=== PATIENT | female | born 1935 | race Caucasian/White ===

== ENCOUNTER 2017-10-18 13:42 | Outpatient (CLI) | payer MEDICARE | END 2017-10-18 13:43 | disposition critical access hospital (66) | LOC: EMS 13:42 | PROVIDERS: ATTEND Surgery | DX: R42 Dizziness and giddiness (principal); R11.0 Nausea | CPT/HCPCS: A0425; A0429 ==

== ENCOUNTER 2017-10-18 14:17 | Inpatient (IN) | payer MEDICARE ==
[2017-10-18] MEDS ORDERED: MECLIZINE 12.5 MG TABLET PO STA (14:30)
--- NOTE | 2017-10-18 14:32 | ED Physician Documentation ---
History of Present Illness - Stated complaint Stated Complaint: DIZZY/NAUSEA - Chief complaint Chief Complaint: General - History obtained from History obtained from: Patient - History of Present Illness Timing: Other (She has had rhinorrhea lately, today around 10 AM developed severe spinning vertigo that is worse when she moved her head or tried to walk. It is not associated with any focal weakness, numbness, or tingling of the extremities and no headache. She vomited in the ambulance on the way here.) Review of Systems Ten Systems: 10 systems reviewed and negative Constitutional: denies: Fever, Chills Ears: denies: Ear pain, Drainage/discharge Nose: reports: Rhinorrhea / runny nose. denies: Congestion Throat: denies: Sore throat Cardiac: denies: Chest pain / pressure, Palpitations PD PAST MEDICAL HISTORY - Past Medical History Cardiovascular: Hypertension, High cholesterol, Atrial fibrillation, Arrhythmia Respiratory: None Neuro: Peripheral neuropathy Endocrine/Autoimmune: Type 2 diabetes GI: GERD : Incontinence, Renal insuffiency HEENT: None Psych: Depression, Anxiety Musculoskeletal: Chronic back pain Derm: Psoriasis - Past Surgical History Past Surgical History: Yes General: Cholecystectomy /[employer]AD: Tubal ligation HEENT: Cataracts Derm: Skin cancer surgery - Present Medications Home Medications: Ambulatory Orders Medication Instructions Recorded Confirmed Hydrochlorothiazide 25 mg PO DAILY 04/28/13 10/18/17 Losartan [Cozaar] 100 mg PO DAILY 04/28/13 10/18/17 Lovastatin [Mevacor] 10 mg PO DAILY 04/28/13 10/18/17 Metoprolol Succinate [Toprol Xl] 25 mg PO BID 04/28/13 10/18/17 Potassium Bicarbonate/Cit AC 20 meq PO DAILY 04/28/13 10/18/17 [Potassium 25 Meq Tablet Eff] Insulin Glargine,Hum.rec.anlog 16 units SQ DAILY 07/13/15 10/18/17 [Lantus] Diltiazem HCl [Diltiazem ER] 480 mg PO DAILY 10/18/17 10/18/17 - Allergies Allergies/Adverse Reactions: Allergies Allergy/AdvReac Type Severity Reaction Status Date / Time verapamil [Verapamil] Allergy Intermediate leg Verified 10/18/17 14:36 swelling lisinopril Allergy Mild cough Verified 10/18/17 14:36 opiates Allergy Intermediate vomiting Uncoded 04/28/13 08:25 - Social History Does the pt smoke?: No Smoking Status: Never smoker Does the pt drink ETOH?: No Does the pt have substance abuse?: No - Immunizations Immunizations are current?: Yes - POLST Patient has POLST: Yes POLST Status: DNR PD ED PE NORMAL - Vitals Vital signs reviewed: Yes - General General: Alert and oriented X 3, No acute distress - HEENT HEENT: PERRL, EOMI, Other (Fast nystagmus on leftward gaze, not rightward gaze, TMs normal.) - Neck Neck: Supple, no meningeal sign, No bony TTP - Cardiac Cardiac: RRR, No murmur - Respiratory Respiratory: No respiratory distress, Clear bilaterally - Abdomen Abdomen: Normal bowel sounds, Soft, Non tender - Extremities Extremities: No deformity, No tenderness to palpate, No edema, No calf tenderness / cord - Neuro Neuro: Alert and oriented X 3, Normal speech, Other (NIHSS zero (1430)) Eye Opening: Spontaneous Motor: Obeys Commands Verbal: Oriented GCS Score: 15 - Psych Psych: Normal mood, Normal affect Results - Vitals Vitals: Vital Signs - 24 hr 10/18/17 10/18/17 14:20 18:34 Temperature 36.5 C 36.9 C Heart Rate 76 82 Respiratory 16 16 Rate Blood Pressure 190/80 H 160/77 H O2 Saturation 98 93 Oxygen O2 Source [] Room air O2 Source Room air - EKG (time done) 1435 Rate: Rate (enter#) (66) Rhythm: NSR [place]: Normal Intervals: RBBB Ischemia: No: ST elevation c/w ischemia Compare to prior EKG: Unchanged from prior EKG (comp with 12/29/14) Computer interpretation: Agree with computer - Labs Labs: Laboratory Tests 10/18/17 10/18/17 15:12 15:12 WBC 6.2 RBC 4.82 Hgb 14.6 Hct 41.6 MCV 86.3 MCH 30.3 MCHC 35.2 RDW 12.7 Plt Count 182 MPV 7.8 L Neut # 4.9 Lymph # 0.7 L [place] # 0.5 Eos # 0.1 Baso # 0.0 Absolute Nucleated RBC 0.00 Nucleated RBC % 0.0 Sodium 135 Potassium 3.7 Chloride 99 L Carbon Dioxide 25 Anion Gap 11.0 BUN 21 H Creatinine 0.9 Estimated GFR (MDRD) 60 L Glucose 305 H Calcium 9.6 Total Bilirubin 0.6 AST 21 ALT 18 Alkaline Phosphatase 128 H Total Protein 6.4 L Albumin 3.3 Globulin 3.1 Albumin/Globulin Ratio 1.1 Lipase 17 L - Rads (name of study) MRI brain Radiology: EMP read contemporaneously (atrophy, NAD) PD MEDICAL DECISION MAKING - ED course ED course: 82-year-old woman with vertigo that seems peripheral based on examination and history. It was intractable in the emergency department and she was unable to ambulate on her own. As such an MRI was performed without evidence of acute disease and she feels she is unable to go home so will be placed in observation for further evaluation and treatment. Departure - Departure Disposition: ED Place in Observation Clinical Impression: Vertigo Condition: Stable
[2017-10-18 15:40] LABS: BASOPHILS % (AUTO) 0.3 %; EOSINOPHILS # (AUTO) 0.1 10^3/uL (0.0-0.7); EOSINOPHILS % (AUTO) 1.4 %; HGB - HEMOGLOBIN 14.6 g/dL (12.0-16.0); LYMPHOCYTES # (AUTO) 0.7 10^3/uL (1.5-3.5); LYMPHOCYTES % (AUTO) 11.6 %; MEAN CORPUSCULAR HEMOGLOBIN 30.3 pg (27.0-31.0); MEAN CORPUSCULAR HGB CONC 35.2 g/dL (32.0-36.0); MEAN CORPUSCULAR VOLUME 86.3 fL (81.0-99.0); MEAN PLATELET VOLUME 7.8 fL (7.9-10.8); MONOCYTES # (AUTO) 0.5 10^3/uL (0.0-1.0); MONOCYTES % (AUTO) 7.4 %; NEUTROPHILS # (AUTO) 4.9 10^3/uL (1.5-6.6); NEUTROPHILS % (AUTO) 79.3 %; PLT - PLATELET COUNT 182 10^3/uL (130-450); RED BLOOD COUNT 4.82 10^6/uL (4.20-5.40); RED CELL DISTRIBUTION WIDTH 12.7 % (12.0-15.0); WHITE BLOOD COUNT 6.2 x10^3/uL (4.8-10.8)
[2017-10-18 15:42] LABS: ALBUMIN 3.3 g/dL (3.2-5.5); ALBUMIN/GLOBULIN RATIO 1.1 (1.0-2.2); BILIRUBIN,TOTAL 0.6 mg/dL (0.2-1.0); CALCIUM 9.6 mg/dL (8.5-10.3); CREATININE 0.9 mg/dL (0.4-1.0); TOTAL PROTEIN 6.4 g/dL (6.7-8.2)
[2017-10-18] MEDS ORDERED: LORazepam 2 MG/ML VIAL IVP STA (16:18)
--- NOTE | 2017-10-18 18:35 | MRI Report ---
EXAM: MRI BRAIN WITHOUT CONTRAST EXAM DATE: 10/18/2017 05:58 PM. CLINICAL HISTORY: Vertigo. COMPARISON: None. TECHNIQUE: Multiplanar, multisequence T1-weighted and fluid-sensitive MR sequences of the brain were performed. Sequences optimized for routine evaluation. Other: None. IV Contrast: None. Findings: Relevant images are indicated (image number, series number). There is patient motion artifact. There is no acute or subacute ischemic changes in the brain. There is no significant hemosiderin depo sition present in the brain. There is no hemorrhage, mass or midline shift. Basal cisterns patent. There are normal expected vascu lar flow voids of the major arteries and veins. There is mild generalized atrophy, mild in straight v entricular enlargement.-day-old ischemic disease present right thalamus. Orbital contents negative, patient post bilateral lens surgery. Mild bilateral maxillary, sphenoid si nus mucosal thickening, moderate bilateral ethmoidal sinus mucosal thickening. Mild to moderate scattered periventricular, peritrigonal, subcortical white matter disease. Partial e mpty sella. Midbrain negative. Craniocervical junction, limited evaluation upper cervical cord negati ve. There is partial visualization of advanced upper cervical spine spondylosis at C3-C4. Impressions: 1. Study partly degraded by motion. 2. No acute or subacute ischemic change. 3. Mild generalized cortical atrophy, mild to moderate scattered white matter disease most likely rel ated to chronic small vessel ischemic disease, correlate with patient risk factors. 4. Partly visualized advanced upper cervical spine spondylosis at C3-C4. [facility] Referring Provider Line: [phone] SITE ID: [id number]
[2017-10-18] MEDS ORDERED: ONDANSETRON 4 MG/2 ML VIAL IVP PRN ×2 (20:15→20:43)
[2017-10-18] MEDS ORDERED: PROCHLORPERAZINE 10 MG/2 ML VIAL IVP PRN ×2 (20:15→20:43)
[2017-10-18] MEDS ORDERED: ZOLPIDEM 5 MG TABLET PO PRN ×2 (20:15→20:43)
[2017-10-18] MEDS ORDERED: ACETAMINOPHEN 325 MG TABLET PO PRN ×2 (20:15→20:43)
[2017-10-18] MEDS ORDERED: SODIUM CHLORIDE FLUSH 0.9% 10 ML SYRINGE IVP PRN ×2 (20:15→20:43)
[2017-10-18] MEDS ORDERED: LABETALOL 20 MG/4 ML SYRINGE IVP STA (20:24)
[2017-10-18] MEDS ORDERED: MECLIZINE 12.5 MG TABLET PO PRN (20:25)
[2017-10-18] MEDS ORDERED: METOPROLOL SUCCINATE 25 MG TABLET PO SCH (21:00)
[2017-10-18] MEDS ORDERED: INSULIN GLARGINE 300 UNIT/3 ML PEN SUBQ SCH (21:00)
[2017-10-18] MEDS ORDERED: HEPARIN 5,000 UNIT/ML VIAL SUBQ SCH (21:00)
[2017-10-18 21:37] LABS: HB2 TOTAL 16.1 g/dL; HEMOGLOBIN A1C % 7.8 % (4.6-6.2)
[2017-10-18] MEDS ORDERED: LABETALOL 20 MG/4 ML SYRINGE IVP SCH (21:56)
[2017-10-18] MEDS: HEPARIN 5,000 UNIT/ML VIAL SUBQ SCH (21:59)
[2017-10-18] MEDS ORDERED: SODIUM CHLORIDE FLUSH 0.9% 10 ML SYRINGE IVP SCH (22:00)
[2017-10-18] MEDS: METOPROLOL SUCCINATE 25 MG TABLET PO SCH (22:01)
[2017-10-18] MEDS: SODIUM CHLORIDE FLUSH 0.9% 10 ML SYRINGE IVP SCH (22:02)
[2017-10-19] MEDS: INSULIN ASPART 300 UNIT/3 ML PEN SUBQ SCH ×5 (00:06→21:27)
[2017-10-19] MEDS: MECLIZINE 12.5 MG TABLET PO PRN ×3 (00:07→23:15)
[2017-10-19] MEDS: SODIUM CHLORIDE FLUSH 0.9% 10 ML SYRINGE IVP SCH ×3 (06:22→21:37)
[2017-10-19] MEDS ORDERED: INSULIN ASPART 300 UNIT/3 ML PEN SUBQ SCH (08:00)
[2017-10-19] MEDS ORDERED: DILTIAZEM HCL PO SCH (09:00)
[2017-10-19] MEDS ORDERED: POTASSIUM BICARB 25 MEQ TABLET PO SCH ×2 (09:00)
[2017-10-19] MEDS ORDERED: INSULIN GLARGINE 300 UNIT/3 ML PEN SUBQ SCH (09:00)
[2017-10-19] MEDS ORDERED: POLYETHYLENE GLYCOL 3350 17 GM PACKET PO SCH (09:00)
[2017-10-19] MEDS ORDERED: FAMOTIDINE 20 MG TABLET PO SCH (09:00)
[2017-10-19] MEDS ORDERED: INSULIN GLARGINE HUM REC ANLOG 16 UNIT SQ SCH (09:00)
[2017-10-19] MEDS ORDERED: LOVASTATIN 10 MG PO SCH ×2 (09:00)
[2017-10-19] MEDS ORDERED: LOSARTAN 100 MG PO SCH (09:00)
[2017-10-19] MEDS ORDERED: hydroCHLOROthiazide 25 MG TABLET PO SCH (09:00)
[2017-10-19] MEDS: ATORVASTATIN 10 MG TABLET PO SCH (09:10)
[2017-10-19] MEDS: diltiaZEM CD 240 MG CAPSULE PO SCH (09:10)
[2017-10-19] MEDS: METOPROLOL SUCCINATE 25 MG TABLET PO SCH ×2 (09:10→21:37)
[2017-10-19] MEDS: LOSARTAN 50 MG TABLET PO SCH (09:10)
[2017-10-19] MEDS: FAMOTIDINE 20 MG TABLET PO SCH (09:10)
[2017-10-19] MEDS: POLYETHYLENE GLYCOL 3350 17 GM PACKET PO SCH (09:10)
[2017-10-19] MEDS: HEPARIN 5,000 UNIT/ML VIAL SUBQ SCH ×2 (09:11→21:37)
--- NOTE | 2017-10-19 09:30 | HISTORY & PHYSICAL EXAMINATION ---
DATE OF ADMISSION: 10/18/2017 Physician: Rena Magallon MD PRIMARY CARE PHYSICIAN: MANUEL FERRELL CHIEF COMPLAINT: Dizziness. HISTORY OF PRESENT ILLNESS: The patient is a pleasant, 82-year-old white female , with multiple past medical problems, who had cold-like symptoms about 5 days ago. She had a sore throat and some clear discharge, took Zicam, after which her symptoms resolved. Subsequently, on the morning of October 18, around 10 a.m., when she woke up, she experienced intense vertigo-like symptoms. She described that the room was spinning with her. She could not turn her head, as she got even more dizzy when she did so. She felt she could not ambulate because of the profound dizziness. She used a walker to go to the bathroom; however, due to the dizziness, she ended up falling. She suffered no injury, but she felt that the symptoms were something she could not handle. Therefore, she asked for her daughter's assistance. When the daughter saw her, they waited for an hour. However, the symptoms did not resolve; therefore, she was brought to the ER for evaluation. Upon presentation to the ER, the patient was hemodynamically stable, although she was found with uncontrolled blood pressure. Her blood pressure was as high as 190/80. Her heart rate was in the 80s. Temperature was 36.9 Celsius, respiratory rate was 16, oxygen saturation 100% on room air. Patient was evaluated by the ER physician, Dr. Arzate. Laboratories included slightly elevated BUN 21 and blood glucose of 305, otherwise unremarkable chemistry panel. White blood cell count was normal. Hemoglobin was normal as well. MRI of the brain showed no acute abnormality. It showed cervical spondylosis and small vessel ischemic disease, which were chronic. EKG showed right bundle branch block pattern which was unchanged compared to previous. Troponin was negative. NIH stroke scale was 0, and the patient had positional vertigo and left-sided nystagmus. PAST MEDICAL HISTORY 1. Type 2 diabetes, diagnosed about 20 years ago, associated with gastroparesis, insulin-dependent. 2. Paroxysmal atrial fibrillation. 3. Hypertension. 4. Dyslipidemia. 5. Right bundle branch block. 6. Psoriasis. 7. Multiple surgeries including cholecystectomy, cataract surgery, tubal ligation. Code status is DO NOT RESUSCITATE. OUTPATIENT MEDICATIONS 1. Potassium bicarbonate 2. Metoprolol succinate. 3. Lovastatin. 4. Losartan. 5. Insulin glargine. 6. Hydrochlorothiazide. 7. Diltiazem. ALLERGIES 1. LISINOPRIL. 2. OPIATES. 3. VERAPAMIL. SOCIAL HISTORY: The patient uses a walker, mostly in the mornings when she gets up. She is a nonsmoker. Independent with activities of daily living. 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 FAMILY HISTORY: Positive for diabetes on both sides of the family. In addition , the mother had COPD, and the father of a complication of carotid artery surgery at age 67. REVIEW OF SYSTEMS: Please see pertinent positives listed above at history of present illness. The patient did not report additional complaints on the 12-point review. PHYSICAL EXAMINATION VITAL SIGNS: Please see listed above in history of present illness. GENERAL: The patient is a well-developed, elderly female who was not in distress. PSYCHIATRIC: Cooperative, pleasant to talk to. NEUROLOGIC: Alert, oriented, with intact speech and symmetric face. At the time of my exam, there was no nystagmus. CARDIOVASCULAR: S1, S2. Regular. No pathologic murmur. RESPIRATORY: Good air entry throughout without wheezes or crackles. ABDOMEN: Soft, benign. Normal bowel tones. LYMPHATICS: No lymphedema. SKIN: Maculopapular lesions consistent with a history of psoriasis. Dry skin. No jaundice. MUSCULOSKELETAL: Atraumatic. ASSESSMENT AND PLAN/ACTIVE ISSUES/DIAGNOSES 1. Labyrinthitis following a viral syndrome, possibly benign positional vertigo. Symptoms are resolving/improving. 2. Uncontrolled hypertension. 3. Hyperglycemia with history of diabetes. PLAN AND ORDERS 1. The patient is getting admitted under observation status. Based on her benign admission workup and improving condition, I expect a short hospital stay, she can likely discharge within 24-48 hours. She will be admitted for symptom control. In addition, I ordered further workup, which will include a urinalysis to rule out occult urinary tract infection. In addition, I added carotid ultrasound to rule out significant carotid stenosis, which could also cause dizziness and vertigo-like symptoms. As she has a history of atrial fibrillation, overnight we will monitor on telemetry; however, in the morning if no events noted then telemetry can be discontinued. In some cases, cardiac arrhythmia could also precipitate dizziness. 2. Deep venous thrombosis prophylaxis. 3. We will continue outpatient medications unchanged. 4. Regarding uncontrolled blood glucose, will add insulin sliding scale, continue antidiabetic diet. Regarding uncontrolled blood pressure, I will add labetalol IV p.r.n. 5. DO NOT RESUSCITATE. Time spent in the care of this patient was 60 minutes. TD: 10/19/2017 05:04 MTDD
[2017-10-19] MEDS: hydroCHLOROthiazide 25 MG TABLET PO SCH (11:11)
[2017-10-19] MEDS: INSULIN GLARGINE 300 UNIT/3 ML PEN SUBQ SCH ×2 (21:24→21:31)
--- NOTE | 2017-10-19 23:11 | PROVIDER PROGRESS NOTE ---
Assessment/Plan - Problem List (1) Vertigo Assessment/Plan: Pt to continue Meclizine which did decrease vertigo/dizziness Pt not yet feeling stable with walking independantly Will move to inpatient status and continue to manage symptoms and check orthostatic VS. She also c/o a frontal headache, therefore will do brain imaging. (2) Diabetes Assessment/Plan: Continue DM diet and Insulin management (3) HTN (hypertension) Assessment/Plan: Continue meds for control, avoid hypotension, which may add to dizziness - Current Meds Current Meds: Current Medications Generic Name Dose Route Start Last Admin Trade Name Freq PRN Reason Stop Dose Admin Atorvastatin Calcium 10 mg 10/19/17 09:00 10/19/17 09:10 Lipitor PO 10 mg DAILY DANIEL Administration Diltiazem HCl 480 mg 10/19/17 09:00 10/19/17 09:10 Cardizem Cd PO 480 mg DAILY DANIEL Administration Famotidine 20 mg 10/19/17 09:00 10/19/17 09:10 Pepcid PO 20 mg DAILY DANIEL Administration Heparin Sodium (Porcine) 5,000 unit 10/18/17 21:00 10/19/17 21:37 SUBQ 5,000 unit BID DANIEL Administration Hydrochlorothiazide 25 mg 10/19/17 09:00 10/19/17 11:11 Hydrodiuril PO Not Given DAILY DANIEL Insulin Aspart 1 - 5 unit 10/18/17 22:54 10/19/17 21:27 Novolog SUBQ 4 unit 0800,1200,1700,2100 DANIEL Administration Protocol Insulin Glargine 16 unit 10/19/17 20:23 10/19/17 21:31 Lantus Solostar SUBQ 16 unit QPM DANIEL Administration Losartan Potassium 100 mg 10/19/17 09:00 10/19/17 09:10 Cozaar PO 100 mg DAILY DANIEL Administration Meclizine HCl 12.5 mg 10/18/17 20:43 10/19/17 11:10 Antivert PO 12.5 mg Q6HR PRN Administration Dizziness Metoprolol Succinate 25 mg 10/18/17 21:00 10/19/17 21:37 Toprol Xl PO 25 mg BID DANIEL Administration Polyethylene Glycol 17 gm 10/19/17 09:00 10/19/17 09:10 Miralax PO Not Given DAILY DANIEL Sodium Chloride 10 ml 10/18/17 22:00 10/19/17 21:37 Normal Saline Flush 0.9% IVP 10 ml Q8HR DANIEL Administration - Lab Result Fish Bone Diagrams: 10/18/17 15:12 10/18/17 15:12 - Additional Planning My Orders: My Active Orders 10/19/17 20:23 Insulin Glargine [Lantus Solostar] 16 unit SUBQ QPM 10/20/17 08:00 Brain [Head W/O] [CT] Routine Sinuses [CT] Routine Subjective - Subjective Patient Reports: Feeling Better, Other (Still has unstable gait, per patient and her daughter, which patient noted walking to bathroom. Patient describes frontal headache, no nasal congestion or fever or cough.) Objective Vital Signs: Vital Signs - 24 hr 10/19/17 21:45 Temperature 36.6 C Heart Rate [ 76 Brachial] Respiratory 20 Rate Blood Pressure 170/62 H [Right Brachial artery] O2 Saturation 97 Oxygen O2 Source Room air I&O (Last 24 Hrs): Intake and Output Totals x24h 10/17/17 10/18/17 10/19/17 23:59 23:59 23:59 Output Total 150 Balance -150 General: Alert, Oriented x3 HEENT: Mucous membr. moist/pink, Other (No tenderness over nasal sinuses, to palpation) Neck: Supple Neuro: Non Focal, Other (No nystagmus) Cardiovascular: Regular rate, No murmurs Respiratory: No respiratory distress Abdomen: Soft Extremities: No edema - Results Results: Laboratory Results WBC 6.2 x10^3/uL (4.8-10.8) 10/18/17 15:12 RBC 4.82 10^6/uL (4.20-5.40) 10/18/17 15:12 Hgb 14.6 g/dL (12.0-16.0) 10/18/17 15:12 Hct 41.6 % (37.0-47.0) 10/18/17 15:12 MCV 86.3 fL (81.0-99.0) 10/18/17 15:12 MCH 30.3 pg (27.0-31.0) 10/18/17 15:12 MCHC 35.2 g/dL (32.0-36.0) 10/18/17 15:12 RDW 12.7 % (12.0-15.0) 10/18/17 15:12 Plt Count 182 10^3/uL (130-450) 10/18/17 15:12 MPV 7.8 fL (7.9-10.8) L 10/18/17 15:12 Neut # 4.9 10^3/uL (1.5-6.6) 10/18/17 15:12 Lymph # 0.7 10^3/uL (1.5-3.5) L 10/18/17 15:12 [place] # 0.5 10^3/uL (0.0-1.0) 10/18/17 15:12 Eos # 0.1 10^3/uL (0.0-0.7) 10/18/17 15:12 Baso # 0.0 10^3/uL (0.0-0.1) 10/18/17 15:12 Absolute Nucleated RBC 0.00 x10^3/uL 10/18/17 15:12 Nucleated RBC % 0.0 /100WBC 10/18/17 15:12 Sodium 135 mmol/L (135-145) 10/18/17 15:12 Potassium 3.7 mmol/L (3.5-5.0) 10/18/17 15:12 Chloride 99 mmol/L (101-111) L 10/18/17 15:12 Carbon Dioxide 25 mmol/L (21-32) 10/18/17 15:12 Anion Gap 11.0 (6-13) 10/18/17 15:12 BUN 21 mg/dL (6-20) H 10/18/17 15:12 Creatinine 0.9 mg/dL (0.4-1.0) 10/18/17 15:12 Estimated GFR (MDRD) 60 (>89) L 10/18/17 15:12 Glucose 305 mg/dL (70-100) H 10/18/17 15:12 Glycated Hemoglobin 7.8 % (4.6-6.2) H 10/18/17 15:12 Estim Average Glucose 177 (70-100) H 10/18/17 15:12 Calcium 9.6 mg/dL (8.5-10.3) 10/18/17 15:12 Total Bilirubin 0.6 mg/dL (0.2-1.0) 10/18/17 15:12 AST 21 IU/L (10-42) 10/18/17 15:12 ALT 18 IU/L (10-60) 10/18/17 15:12 Alkaline Phosphatase 128 IU/L (42-121) H 10/18/17 15:12 Troponin I < 0.04 ng/mL (<0.49) 10/18/17 20:45 Total Protein 6.4 g/dL (6.7-8.2) L 10/18/17 15:12 Albumin 3.3 g/dL (3.2-5.5) 10/18/17 15:12 Globulin 3.1 g/dL (2.1-4.2) 10/18/17 15:12 Albumin/Globulin Ratio 1.1 (1.0-2.2) 10/18/17 15:12 Lipase 17 U/L (22-51) L 10/18/17 15:12
[2017-10-20] MEDS: SODIUM CHLORIDE FLUSH 0.9% 10 ML SYRINGE IVP SCH (05:30)
[2017-10-20 05:38] LABS: BILIRUBIN,URINE NEGATIVE (NEGATIVE); GLUCOSE, URINE (UA) NEGATIVE (NEGATIVE); KETONES,URINE (UA) NEGATIVE (NEGATIVE); LEUKOCYTE ESTERASE, URINE TRACE (NEGATIVE); NITRITE,URINE NEGATIVE (NEGATIVE); OCCULT BLOOD,URINE NEGATIVE (NEGATIVE); PROTEIN,URINE 100 mg/dL (NEGATIVE); UROBILINOGEN,URINE 0.2 (NORMAL) E.U./dL (NORMAL)
[2017-10-20 05:49] LABS: BACTERIA,URINE None Seen /HPF (None Seen); CLARITY,URINE CLEAR (CLEAR); RBC,URINE 0-5 /HPF (0-5); SQUAMOUS EPITHELIAL CELL,UR MOD Squamous (<= Few)
--- NOTE | 2017-10-20 06:27 | CT Report ---
EXAM: CT HEAD EXAM DATE: 10/20/2017 05:32 AM. CLINICAL HISTORY: F/U Vertigo vs TIA. COMPARISON: None. TECHNIQUE: Multiaxial CT images were obtained from the foramen magnum to the vertex. Reformats: Coron al. IV contrast: None. In accordance with CT protocol optimization, one or more of the following dose reduction techniques w ere utilized for this exam: automated exposure control, adjustment of mA and/or KV based on patient s ize, or use of iterative reconstructive technique. FINDINGS: Parenchyma: No intraparenchymal hemorrhage. No evidence of mass, midline shift, or CT findings of inf arction. Snider-white differentiation is distinct. Extraaxial Spaces: Normal for age. No subdural or epidural collections identified. Ventricles: Normal in size and position. Sinuses and Orbits: Please see CT paranasal sinuses report from the same date. Bones: No evidence of fracture or calvarial defect. Other: None. IMPRESSION: No acute or focal intracranial abnormality. [facility] Referring Provider Line: [phone] SITE ID: [id number]
--- NOTE | 2017-10-20 06:35 | CT Report ---
EXAM: CT SINUS EXAM DATE: 10/20/2017 05:31 AM. HISTORY: Upper respiratory tract infection, evaluate for sinusitis. COMPARISONS: None. TECHNIQUE: Routine multi-axial CT imaging performed through the sinuses. Iodinated IV contrast: None. Reconstructions: Coronal. In accordance with CT protocol optimization, one or more of the following dose reduction techniques w ere utilized for this exam: automated exposure control, adjustment of mA and/or KV based on patient s ize, or use of iterative reconstructive technique. FINDINGS: RIGHT Frontal: Mild mucosal thickening Ethmoid: Mucosal thickening partially opacifies multiple anterior ethmoid air cells. Maxillary: Moderate mucosal thickening within the floor of the right maxillary antrum. Sphenoid: Normal. Drainage Pathways: The frontal recess appears occluded by a small amount of soft tissue thickening, s imilar findings within the right maxillary infundibulum. LEFT Frontal: Mild mucosal thickening. Ethmoid: Mucosal thickening opacifies multiple left-sided anterior ethmoid air cells. Maxillary: Mild mucosal thickening within the maxillary antrum floor and medial wall. Sphenoid: Normal. Drainage Pathways: Frontal recess appears occluded by soft tissue thickening. Similar finding within the left maxillary antrum and infundibulum. Nasal Cavity: Normal. No mass or significant anatomic abnormality evident. Osseous Structures: Unremarkable. Orbits: Unremarkable. Other: None. IMPRESSION: Mild mucosal thickening within the frontal, ethmoid and maxillary sinuses, as outlined ab teresae. [facility] Referring Provider Line: [phone] SITE ID: [id number]
[2017-10-20] MEDS: METOPROLOL SUCCINATE 25 MG TABLET PO SCH ×2 (08:25→08:26)
[2017-10-20] MEDS: ATORVASTATIN 10 MG TABLET PO SCH (08:25)
[2017-10-20] MEDS: FAMOTIDINE 20 MG TABLET PO SCH (08:25)
[2017-10-20] MEDS: LOSARTAN 50 MG TABLET PO SCH (08:26)
[2017-10-20] MEDS: POLYETHYLENE GLYCOL 3350 17 GM PACKET PO SCH (08:27)
[2017-10-20] MEDS: diltiaZEM CD 240 MG CAPSULE PO SCH (08:27)
[2017-10-20] MEDS: hydroCHLOROthiazide 25 MG TABLET PO SCH (08:28)
[2017-10-20] MEDS: MECLIZINE 12.5 MG TABLET PO PRN (08:28)
[2017-10-20] MEDS: HEPARIN 5,000 UNIT/ML VIAL SUBQ SCH (08:29)
[2017-10-20] MEDS: INSULIN ASPART 300 UNIT/3 ML PEN SUBQ SCH ×2 (08:31→11:41)
[2017-10-20 11:36] VITALS: BP 152/78
--- NOTE | 2017-10-20 11:57 | Discharge Plan ---
Discharge Plan Disposition: 01 Home, Self Care Condition: Stable Prescriptions: Meclizine [Antivert] 12.5 mg PO Q6HR PRN #40 tablet PRN Reason: Dizziness Diet: Diabetic Activity Restrictions: Activity as Tolerated Shower Restrictions: No Driving Restrictions: No Instruction Topics: Vertigo Ch Additional Instructions or Follow Up instructions: See your doctor in follow-up in 7-10 days Start using Meclizine for vertigo. See your doctor for a refill on this medication. Resume all your other pre-hospital medications. No Smoking: If you smoke, Please STOP! Call for help.
--- NOTE | 2017-10-20 15:34 | Ultrasound Report ---
DATE OF SERVICE: CAROTID DUPLEX: 10/19/2017 CLINICAL INDICATION: Vertigo. TECHNIQUE: Real-time sonographic vascular imaging was performed by the copy writer through the carotid arteries utilizing both color-flow and Doppler spectral analysis. Multiple outside energy sales representatives static images were saved for review. RIGHT Vessel PSV cm/sec EDV cm/sec ICA/CCA PSV Ratio Degree of stenosis Plaque Estimate% RCCA Prox 54 --- --- --- --- RCCA Dist 79 13 --- --- --- RECA 84 --- --- --- --- RT BULB 87 7 1.1 --- --- JAKUB Prox 54 14 0.68 --- --- JAKUB Mid 54 14 0.68 --- --- JAKUB Dist 64 18 0.81 --- --- RVA 40 --- --- --- --- RVA flow direction: Antegrade LEFT Vessel PSV cm/sec EDV cm/sec ICA/CCA PSV Ratio Degree of stenosis Plaque Estimate% LCCA Prox 53 --- --- --- --- LCCA Dist 57 14 --- --- --- LECA 76 --- --- --- --- LFT BULB 52 12 0.91 --- --- LICA Prox 44 10 0.77 --- --- LICA Mid 54 15 0.94 --- --- LICA Dist 62 14 1.0 --- --- LVA 47 --- --- --- --- LVA flow direction: Antegrade Velocity criteria are extrapolated from diameter data as defined by the Society of Radiologists in Ultrasound Consensus Conference Radiology 2003; 229; 340-346. Degree of Stenosis ICA PSV cm/sec ICA/CCA RSV Ratio ICA EDV cm/sec Plaque Estimate % % Normal < 125 < 40 < 2.0 None <50 < 125 <40 < 2.0 < 50 50-69 125-130 40-100 2.0-4.0 >/= 50 >/=70 but less than> 230 > 100 > 4.0 >/= 50 near occlusion Near occlusion High, low or Variable Variable Visible undetectable Total occlusion Undetectable Not applicable Not applicable No detectable lumen RIGHT: There is mild calcified plaquing in the right carotid bifurcation, without evidence of a focal hemodynamically significant stenosis. LEFT: There is moderate calcified plaquing in the left carotid bifurcation, without evidence of a focal hemodynamically significant stenosis. The vertebral arteries demonstrate antegrade flow bilaterally. IMPRESSION: No evidence of a hemodynamically significant carotid stenosis. Left greater than right calcified plaquing. TD: 10/19/2017 20:34 [facility]
--- NOTE | 2017-11-04 03:23 | DISCHARGE SUMMARY ---
Physician: Meme Serrato MD DATE OF ADMISSION: 10/18/2017 DATE OF DISCHARGE: 10/20/2017 HISTORY OF PRESENT ILLNESS: This is an 82-year-old, white female with a history of hypertension, diabetes on insulin, and a recent upper respiratory infection 4 days previously that has improved but not resolved. She presented with new onset of positional vertigo that was so severe that she fell while walking from one room to another in her house. Her daughter tried to assist her and, after 1 hour of severe symptoms, the patient decided to come to the emergency room. There, she was evaluated for neurologic symptoms such as stroke , and was felt to have significant positional vertigo, and placed in observation and started on meclizine. HOSPITAL COURSE AND DISCHARGE DIAGNOSES 1. Positional vertigo, disabling, causing a fall. The patient had moderate improvement on meclizine, but was still very unsteady in her gait and was changed to full inpatient status. Meclizine was continued and did give significant improvement after 48 hours, and she was discharged on this new medication. The patient had imaging studies done while here to evaluate the symptom. Brain MRI: No acute or subacute ischemic changes. 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 Carotid Doppler: No evidence of hemodynamically significant stenoses, but there is bilateral plaque, left greater than right. Head CT and sinus CT: No acute or focal intracranial abnormality. Mild mucosal thickening of the frontal, ethmoid and maxillary sinuses. It was felt that a viral sinusitis had led to her positional vertigo. 2. Recent upper respiratory infection. Symptoms were decreasing while she was here and the sinus CT confirmed the diagnosis. 3. Hypertension. The patient's blood pressure on presentation was 190/80 and her prehospital medications were continued. She had improvement by the time of discharge with a blood pressure of 152/78. 4. Diabetes, on insulin. The patient's HbA1c was 7.8 on admission. She was running glucoses between 150 and 280 while here. Her insulin was continued, as well as diabetic diet and a sliding scale insulin for extra coverage. 5. History of paroxysmal atrial fibrillation. The patient was on telemetry during this stay to evaluate for dysrhythmias as the cause of the dizziness symptoms. She was in sinus rhythm throughout her hospital course here. LABORATORIES AND IMAGING: Reviewed and summarized above. ALLERGIES 1. VERAPAMIL. 2. LISINOPRIL. 3. OPIATES. MEDICATIONS AT DISCHARGE 1. Meclizine 12.5 mg p.o. q.6 hours All her other medications were the same as prehospitalization includin. Diltiazem ER 480 mg p.o. daily. 3. Hydrochlorothiazide 25 mg p.o. daily. 4. Insulin 15 units of glargine subcutaneously daily. 5. Insulin regular sliding scale with Novolin. 6. Cozaar 100 mg p.o. daily. 7. Mevacor 10 mg p.o. daily. 8. Lopressor 25 mg p.o. b.i.d. 9. Multivitamin with iron and folic acid daily. 10. Potassium chloride 20 mEq p.o. daily. 11. Florastor daily. CONDITION AT DISCHARGE: Stable. PHYSICAL EXAMINATION AT DISCHARGE VITAL SIGNS: Blood pressure 150/70, heart rate 78 in sinus rhythm, afebrile, oxygen saturation 96 percent. HEENT: Unremarkable. Moist oral mucosa. NECK: Without JVD, thyromegaly, or lymphadenopathy. No bruits in the neck. CHEST: Clear. HEART: Heart sounds normal. ABDOMEN: Soft and unremarkable. EXTREMITIES: Without edema. NEUROLOGIC: Grossly intact. There was no nystagmus and normal extraocular movements on neurologic exam. FOLLOWUP: With her PCP in 1 week or sooner for a refill of meclizine. CODE STATUS: FULL CODE. TIME REQUIRED TO COMPLETE THIS ENTIRE DISCHARGE: 30 minutes. TD: 11/04/2017 03:22 OWEN
== END 2017-10-20 12:55 | disposition home or self-care (01) | DRG 149 ==
LOC: EDBD → EDUNIT# → ED 14:17 → OBS 20:15 → ED 20:42 → OBSVTOIN 10-19 20:20 → MS2 10-19 21:36
PROVIDERS: ADMIT Internal Medicine; ATTEND Internal Medicine
DX: H83.09 Labyrinthitis, unspecified ear (principal); H81.10 Benign paroxysmal vertigo, unspecified ear; E11.65 Type 2 diabetes mellitus with hyperglycemia; J06.9 Acute upper respiratory infection, unspecified; E11.43 Type 2 diabetes mellitus with diabetic autonomic (poly)neuropathy; K31.84 Gastroparesis; E11.42 Type 2 diabetes mellitus with diabetic polyneuropathy; I10 Essential (primary) hypertension; I48.0 Paroxysmal atrial fibrillation; E78.5 Hyperlipidemia, unspecified; I45.10 Unspecified right bundle-branch block; L40.9 Psoriasis, unspecified; M47.892 Other spondylosis, cervical region; Z66 Do not resuscitate; Z79.4 Long term (current) use of insulin; Z79.899 Other long term (current) drug therapy; Z91.81 History of falling
CPT/HCPCS: 36415; 70450; 70486; 70551; 80053; 81001; 83036; 83690; 84484; 85025; 87086; 93880; 96372; 96374; 99284; 99285

== ENCOUNTER 2017-10-25 16:18 | Outpatient (CLI) | payer MEDICARE | END 2017-10-25 16:19 | disposition critical access hospital (66) | LOC: EMS 16:18 | PROVIDERS: ATTEND Surgery | DX: S09.90XA Unspecified injury of head, initial encounter (principal); W20.8XXA Other cause of strike by thrown, projected or falling object, initial encounter; W18.39XA Other fall on same level, initial encounter; Y92.008 Other place in unspecified non-institutional (private) residence as the place of occurrence of the external cause | CPT/HCPCS: A0425; A0427 ==

== ENCOUNTER 2017-10-25 17:10 | Emergency (ER) | payer MEDICARE ==
--- NOTE | 2017-10-25 18:30 | ED Physician Documentation ---
PD HPI HEAD INJURY - Stated complaint Stated Complaint: GLF - Chief complaint Chief Complaint: Trauma Hd/Nk - History obtained from History obtained from: Patient - History of Present Illness Mechanism of head injury: Fell (she says the car door closed against her and pushed her over, she struck head on rough ground. Pain in scalp/head and right side of face. No neck, chest, abd pain. No LOC. Was witnessed and patient acting okay afterward.) Where head injury occurred: Home Timing - onset: Today Location of injury: Right, Back Quality of pain: Pain Associated symptoms: No: LOC, AMS, Nausea / vomiting Symptoms worsen with: Palpation Contributing factors: No: Anticoagulated, Intoxicated Similar symptoms before: Has not had sx before Recently seen: Not recently seen Review of Systems Constitutional: denies: Fever, Chills Nose: denies: Rhinorrhea / runny nose, Congestion Throat: denies: Sore throat Cardiac: denies: Chest pain / pressure, Palpitations Respiratory: denies: Dyspnea, Cough GI: denies: Abdominal Pain, Nausea, Vomiting Skin: reports: Laceration (s) (scalp from the fall today) Musculoskeletal: denies: Neck pain, Back pain Neurologic: reports: Head injury. 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 HEENT: Cataracts Derm: Skin cancer surgery - Present Medications Home Medications: Ambulatory Orders Medication Instructions Recorded Confirmed Hydrochlorothiazide 25 mg PO DAILY 04/28/13 10/18/17 Losartan [Cozaar] 100 mg PO DAILY 04/28/13 10/18/17 Lovastatin [Mevacor] 10 mg PO DAILY 04/28/13 10/18/17 Insulin Glargine,Hum.rec.anlog 15 units SQ DAILY 07/13/15 10/19/17 [Lantus] Diltiazem HCl [Diltiazem ER] 480 mg PO DAILY 10/18/17 10/18/17 Insulin Regular Human [NovoLIN R] 3 - 8 unit SUBQ TIDWM 10/19/17 10/19/17 Metoprolol Tartrate [Lopressor] 25 mg PO BID 10/19/17 10/19/17 Multivitamin/Iron/Folic Acid 1 each PO DAILY 10/19/17 10/19/17 [Centrum Adults Tablet] Potassium Chloride [Klor-Con M20] 20 meq PO DAILY 10/19/17 10/19/17 Saccharomyces Boulardii [Florastor] 250 mg PO BID 10/19/17 10/19/17 Meclizine [Antivert] 12.5 mg PO Q6HR PRN #40 tablet 10/20/17 - Allergies Allergies/Adverse Reactions: Allergies Allergy/AdvReac Type Severity Reaction Status Date / Time verapamil [Verapamil] Allergy Intermediate leg Verified 10/18/17 14:36 swelling lisinopril Allergy Mild cough Verified 10/18/17 14:36 opiates Allergy Intermediate vomiting Uncoded 04/28/13 08:25 - Social History Does the pt smoke?: No Smoking Status: Never smoker Does the pt drink ETOH?: No Does the pt have substance abuse?: No - Immunizations Immunizations are current?: Yes - POLST Patient has POLST: Yes POLST Status: DNR PD ED PE NORMAL - Vitals Vital signs reviewed: Yes - General General: Alert and oriented X 3, No acute distress, Well developed/nourished - HEENT HEENT: Pharynx benign, Dentition benign, Other (right upper occiput with hematoma and matted blood in hair. Minimal ongoing bleeding right now. ) - Neck Neck: Supple, no meningeal sign, No adenopathy, Other (she says she has had neck pain only after C-collar was placed, and she feels better when I take it off. 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, No motor deficit, Normal speech Eye Opening: Spontaneous Motor: Obeys Commands Verbal: Oriented GCS Score: 15 - Psych Psych: Normal mood Results - Vitals Vitals: Vital Signs - 24 hr 10/25/17 10/25/17 10/25/17 17:12 18:33 22:30 Temperature 36.5 C Heart Rate 56 L 64 73 Respiratory 18 22 18 Rate Blood Pressure 189/59 H 200/63 H 177/75 H O2 Saturation 94 97 97 Oxygen O2 Source [With Activity] Room air O2 Source Room air - Labs Labs: Laboratory Tests 10/25/17 21:33 WBC 13.8 H RBC 4.34 Hgb 13.0 Hct 38.2 MCV 88.0 MCH 30.0 MCHC 34.1 RDW 12.6 Plt Count 255 MPV 7.4 L Neut # 11.4 H Lymph # 1.4 L Martin # 0.8 Eos # 0.1 Baso # 0.0 Absolute Nucleated RBC 0.01 Nucleated RBC % 0.0 - Rads (name of study) head and face CT Radiology: Prelim report reviewed (no ICH/fractures; scalp hematoma noted) neck CT Radiology: Prelim report reviewed (arthritic changes, no fracture) Procedures - Laceration (location) occiput scalp Length in cm: 3 Wound type: Stellate, Into subcut fat, Clean, Other (ongoing bleeding when techs cleansed the area) Neurovascular status: Vascular intact Anesthesia: Lidocaine 1% with epi Wound Preparation: Irrigated copiously NS, Wound explored, To the base, Wound edges modified, Other (clots cleared out from under scalp). No: FB identified Deep layer closure: Vicryl, size #-0 - enter number (4), # sutures - enter number (5) Skin layer closure: Nylon, Running, Size #-0 - enter number (4), Sutures - enter # (16) Other: Patient tolerated well (she was cold and some shivering with the cleansing/irrigation water on her head, but warmed after we were done.), No complications, Neurovascular intact, Dressing applied, Tetanus UTD Departure - Departure Disposition: 01 Home, Self Care Clinical Impression: Vertigo Accidental fall Qualifiers: Encounter type: initial encounter Qualified Code(s): W19.XXXA - Unspecified fall, initial encounter Occipital scalp laceration Qualifiers: Encounter type: initial encounter Qualified Code(s): S01.01XA - Laceration without foreign body of scalp, initial encounter Facial contusion Qualifiers: Encounter type: initial encounter Qualified Code(s): S00.83XA - Contusion of other part of head, initial encounter Condition: Stable Record reviewed to determine appropriate education?: Yes Instructions: ED Laceration Scalp Stitch Or Stap Follow-Up: Cuca Brandon MD [Primary Care Provider] - Comments: It is okay to wash and shower. Clean off the wound twice a day with soap and water, or peroxide and water. Apply some antibiotic ointment to it to keep it moist. Also to watch for signs of infection such as purulence, redness or increasing pain. Return to your primary care or the ER at the specified time for suture removal. Suture removal in 12-14 days. Tylenol if needed for pains. Expect some increase in your baseline vertigo due to the injury and also the movement we did for suturing etc. This should quiet down over a few days. Continue your meclizine as needed. Discharge Date/Time: 10/25/17 23:00
[2017-10-25] MEDS ORDERED: SODIUM CHLORIDE 0.9% 1,000 ML IV ONE (18:40)
--- NOTE | 2017-10-25 19:41 | CT Report ---
EXAM: CT HEAD EXAM DATE: 10/25/2017 07:13 PM. CLINICAL HISTORY: Fall and struck back of head. COMPARISON: CT facial bones and cervical spine today, CT head 10/20/2017. TECHNIQUE: Multiaxial CT images were obtained from the foramen magnum to the vertex. Reformats: Coron al. IV contrast: None. In accordance with CT protocol optimization, one or more of the following dose reduction techniques w ere utilized for this exam: automated exposure control, adjustment of mA and/or KV based on patient s ize, or use of iterative reconstructive technique. FINDINGS: Parenchyma: No intraparenchymal hemorrhage. No evidence of mass, midline shift, or CT findings of inf arction. Snider-white differentiation is distinct. Extraaxial Spaces: Normal for age. No subdural or epidural collections identified. Ventricles: Normal in size and position. Sinuses and Orbits: Bilateral cataract surgery. Mild inferior right maxillary sinus mucosal thickenin g. Other visualized paranasal sinuses are clear as are mastoids and middle ears. Bones: No evidence of fracture or calvarial defect. Other: Mild calcification in bilateral cavernous internal carotid arteries and proximal intracranial bilateral vertebral arteries. Moderate right parieto-occipital scalp contusion. IMPRESSION: 1. Moderate right parietal occipital scalp contusion without skull fracture. 2. No intracranial hemorrhage. [facility] Referring Provider Line: [phone] SITE ID: [id number]
--- NOTE | 2017-10-25 19:41 | CT Report ---
EXAM: CT CERVICAL SPINE WITHOUT CONTRAST DATE: 10/25/2017 07:12 PM. HISTORY: Fall and struck head. COMPARISONS: CT head and facial bones today. TECHNIQUE: Thin-section axial images were acquired of the cervical spine without contrast. Post-proce ssing: Coronal and sagittal reformats. Other: None. In accordance with CT protocol optimization, one or more of the following dose reduction techniques w ere utilized for this exam: automated exposure control, adjustment of mA and/or KV based on patient s ize, or use of iterative reconstructive technique. FINDINGS: Alignment: 2 mm spondylotic anterolisthesis of T2 on T3. Straightening of the normal upper cervical l ordosis. Bones: No fracture from the craniocervical junction through T2. Interspace Levels/Facets: Moderate osteoarthritis of the pre-dens interval. Calcification of the wagner sverse ligament of C1. Moderate osteoarthritis of the bilateral atlantooccipital joints. Disk height loss and endplate osteophyte formation indicating degenerative disk disease which is mild at C2-C3, m oderate to severe at C3-C4, C4-C5, C5-C6, and C6-C7. Mild degenerative disk disease from C1-C2 throug h T2-T3. Mild bilateral facet hypertrophy throughout the upper to mid cervical spine. Disk height los s as well as uncovertebral and facet joint hypertrophy contributing to bony foraminal stenosis which is mild bilaterally at C3-C4, moderate on the right and mild on the left at C4-C5, moderate on the ri ght and mild on the left at C5-C6, moderate bilaterally at C6-C7, mild on the right at C7-T1. Musculature: Normal. No fatty atrophy. Other: Nonspecific 8 mm hypodense nodule posterolaterally in the lower right thyroid lobe. The parave rtebral and prevertebral soft tissues are unremarkable. The lung apices are clear. There is mild calc ification in the bilateral carotid bulbs. IMPRESSION: 1. No fracture from the craniocervical junction through T2. 2. Moderate to severe multilevel degenerative change as described above. [facility] Referring Provider Line: [phone] SITE ID: [id number]
--- NOTE | 2017-10-25 19:41 | CT Preliminary Report ---
Exam: CT HEAD W/O IMPRESSION: 1. Moderate right parietal occipital scalp contusion without skull fracture. 2. No intracranial hemorrhage. [facility] SITE ID: [id number]
--- NOTE | 2017-10-25 19:41 | CT Preliminary Report ---
Exam: CT FACIAL BONES W/O IMPRESSION: 1. No facial bone fracture. 2. Improved sinusitis with mild right and minimal left residual maxillary sinus mucosal thickening. [facility] SITE ID: [id number]
--- NOTE | 2017-10-25 19:41 | CT Report ---
EXAM: CT MAXILLOFACIAL WITHOUT CONTRAST EXAM DATE: 10/25/2017 07:12 PM. CLINICAL HISTORY: Fall and struck head/face. COMPARISONS: CT head and cervical spine today. CT sinuses 10/20/2017. TECHNIQUE: Thin-section axial images were acquired of the face without contrast. Post-processing: Cor onal and sagittal reformats. Other: None. In accordance with CT protocol optimization, one or more of the following dose reduction techniques w ere utilized for this exam: automated exposure control, adjustment of mA and/or KV based on patient s ize, or use of iterative reconstructive technique. FINDINGS: Soft Tissue: No mass or fluid collection.The infratemporal fossa and parapharyngeal spaces are unrema rkable. Orbits: Symmetric and unremarkable. Bones: No fracture or bone lesion. Multilevel cervical degenerative change. See report of cervical sp ine CT today. Temporomandibular Joints: The temporomandibular joints are symmetric and normally located. Sinuses: Paranasal sinus mucosal thickening seen before has improved. There is mild right and minimal left inferior maxillary sinus residual. Middle ears and visualized mastoid sinuses are clear. Other: None. IMPRESSION: 1. No facial bone fracture. 2. Improved sinusitis with mild right and minimal left residual maxillary sinus mucosal thickening. [facility] Referring Provider Line: [phone] SITE ID: [id number]
--- NOTE | 2017-10-25 19:41 | CT Preliminary Report ---
Exam: CT CERVICAL SPINE W/O IMPRESSION: 1. No fracture from the craniocervical junction through T2. 2. Moderate to severe multilevel degenerative change as described above. [facility] SITE ID: [id number]
[2017-10-25] MEDS ORDERED: LIDOCAINE MPF 1%-EPI 1:200000 30 ML VIAL SUBQ STA (20:12)
[2017-10-25 21:40] LABS: BASOPHILS % (AUTO) 0.3 %; EOSINOPHILS # (AUTO) 0.1 10^3/uL (0.0-0.7); EOSINOPHILS % (AUTO) 0.9 %; LYMPHOCYTES # (AUTO) 1.4 10^3/uL (1.5-3.5); LYMPHOCYTES % (AUTO) 9.9 %; MEAN CORPUSCULAR HGB CONC 34.1 g/dL (32.0-36.0); MEAN PLATELET VOLUME 7.4 fL (7.9-10.8); MONOCYTES # (AUTO) 0.8 10^3/uL (0.0-1.0); NEUTROPHILS # (AUTO) 11.4 10^3/uL (1.5-6.6); NEUTROPHILS % (AUTO) 82.9 %; PLT - PLATELET COUNT 255 10^3/uL (130-450); RED BLOOD COUNT 4.34 10^6/uL (4.20-5.40); RED CELL DISTRIBUTION WIDTH 12.6 % (12.0-15.0); WHITE BLOOD COUNT 13.8 x10^3/uL (4.8-10.8)
[2017-10-25 22:32] VITALS: BP 177/75
== END 2017-10-25 23:00 | disposition home or self-care (01) ==
LOC: EDUNIT# → SUPCPDRO 17:10 → ED 17:10
DX: S01.01XA Laceration without foreign body of scalp, initial encounter (principal); S00.83XA Contusion of other part of head, initial encounter; W18.39XA Other fall on same level, initial encounter; R42 Dizziness and giddiness; I10 Essential (primary) hypertension; I48.91 Unspecified atrial fibrillation; I49.9 Cardiac arrhythmia, unspecified; E11.42 Type 2 diabetes mellitus with diabetic polyneuropathy; Z79.4 Long term (current) use of insulin; K21.9 Gastro-esophageal reflux disease without esophagitis
CPT/HCPCS: 12002; 36415; 70450; 70486; 72125; 85025; 96360; 99283; 99284

== ENCOUNTER 2017-10-27 16:37 | Outpatient (CLI) | payer MEDICARE | END 2017-10-27 16:38 | disposition short-term general hospital (02) | LOC: EMS 16:37 | PROVIDERS: ATTEND Surgery | DX: R42 Dizziness and giddiness (principal); R11.10 Vomiting, unspecified; R03.1 Nonspecific low blood-pressure reading | CPT/HCPCS: A0170; A0425; A0427 ==